=== PATIENT | female | born 1980 | race African-American/Black ===

== ENCOUNTER 2016-11-29 15:06 | Emergency (ER) | payer OTHER ==
[~2016-11-29] VITALS: Ht 165.1 cm; Wt 105.2 kg
[2016-11-29] MEDS ORDERED: FAMOTIDINE 20 MG TABLET PO ONE (15:30)
[2016-11-29] MEDS ORDERED: predniSONE 10 MG TABLET PO ONE (15:30)
[2016-11-29] MEDS ORDERED: diphenhydrAMINE 50 MG CAPSULE PO ONE (15:30)
[2016-11-29] MEDS ORDERED: diphenhydrAMINE 50 MG CAPSULE ONE (15:40)
[2016-11-29] MEDS ORDERED: FAMOTIDINE 20 MG TABLET ONE (15:40)
[2016-11-29] MEDS ORDERED: predniSONE 20 MG TABLET ONE (15:40)
--- NOTE | 2016-11-29 16:05 | NUR ---
Patient discharged to home in stable conditon. Written and verbal after care instructions given. Patient verbalizes understanding of instructions.
== END 2016-11-29 16:07 | disposition home or self-care (01) ==
LOC: ER 15:06
DX: L50.9 Urticaria, unspecified (principal); I10 Essential (primary) hypertension; D50.9 Iron deficiency anemia, unspecified; Z88.0 Allergy status to penicillin
CPT/HCPCS: A4663; J7512; Q0163